=== PATIENT | female | born 1995 | race Caucasian/White ===

== ENCOUNTER 2018-04-24 13:36 | Emergency (ER) | payer OTHER, SELFPAY ==
[2018-04-24 13:51] VITALS: BP 120/60; PULSE 75; TEMP 37.1; O2SAT 99
--- NOTE | 2018-04-24 22:35 | ED_ITS ---
HPI - Extremity Problem <TEMO Mueller - Last Filed: 04/24/18 22:35> General Chief complaint: Extremity Problem,Nontraumatic Stated complaint: RT HEEL BROKEN, NUMB AND SMITA Time Seen by Provider: 04/24/18 14:33 Source: patient Mode of arrival: ambulatory Limitations: no limitations History of Present Illness HPI Narrative: Patient is a 23-year-old female with history of calcaneus fracture being seen by a [facility]. She presents to emergency department with cast on right lower leg and place. She is complaining of cold numb and tingly toes. She states this started earlier today. She has not followed up with her orthopedist. She states she can wiggle her toes. She states she is concerned because she is having to work as normal and is not allowed to elevate her leg. She also states she is out of her narcotic pain medication. She states that the cast feels loose. Related Data Home Medications Medication Instructions Recorded Confirmed acetaminophen [Mapap 325 mg PO PRN PRN 04/24/18 04/24/18 (acetaminophen)] desogestrel-ethinyl estradiol 1 tab PO DAILY 04/24/18 04/24/18 [Emoquette] ibuprofen 600 mg PO QID 04/24/18 04/24/18 Allergies Allergy/AdvReac Type Severity Reaction Status Date / Time No Known Drug Allergies Allergy Verified 04/24/18 14:00 Review of Systems <TEMO Mueller - Last Filed: 04/24/18 22:35> Review of Systems GENERAL: Denies chills, fatigue, malaise, fever, sweats. HEENT: Denies sinus pain, ear pain, sore throat, difficulty swallowing, dizziness. RESPIRATORY: Denies dyspnea, cough, wheezing, hemoptysis, sputum. CARDIOVASCULAR: Denies chest pain, palpitations, orthopnea, edema, GASTROINTESTINAL: Denies nausea, vomiting, abdominal pain, diarrhea, constipation, melena. : Denies dysuria, frequency, incontinence, hematuria, urinary retention. MUSCULOSKELETAL: See HPI SKIN: See HPI NEUROLOGIC: Denies weakness, headache, numbness, change in speech, confusion, seizures, incoordination. PSYCHIATRIC: No concerning psychosocial issues. 12 point review of systems is negative except for those stated above Exam <TEMO Mueller - Last Filed: 04/24/18 22:35> Narrative Exam Narrative: GENERAL: This is a well-nourished, well-developed patient, in mild distress. HEAD: Atraumatic. Normocephalic. No temporal or scalp tenderness. EYES: Pupils equal round and reactive. Extraocular motions intact. No scleral icterus. No injection or drainage. ENT: Nose without bleeding, purulent drainage or septal hematoma. Throat without erythema, tonsillar hypertrophy or exudate. Uvula midline. Airway patent. NECK: Trachea midline. No JVD or lymphadenopathy. Supple, nontender, no meningeal signs. CARDIOVASCULAR: Regular rate and rhythm. RESPIRATORY: No increased respiratory effort. No accessory muscle use. No cough on exam. EXTREMITIES: Cast in place right lower leg. Positive pulses right foot. Patient is able to wiggle her right toes. No obvious swelling. Can insert finger in to cast at lower foot around entire foot. BACK: Nontender without deformity or crepitance. No flank tenderness. NEURO: AOx3. SKIN: Bilateral toes equivocal collar. Capillary refill less than 2 sec right toes. Initial Vital Signs Initial Vital Signs: Vital Signs Temperature 98.8 F 04/24/18 13:51 Pulse Rate 75 04/24/18 13:51 Blood Pressure 120/60 04/24/18 13:51 Pulse Oximetry 99 04/24/18 13:51 <Jena Sheth DO - Last Filed: 04/25/18 08:13> Initial Vital Signs Initial Vital Signs: Vital Signs Temperature 98.8 F 04/24/18 13:51 Pulse Rate 75 04/24/18 13:51 Blood Pressure 120/60 04/24/18 13:51 Pulse Oximetry 99 04/24/18 13:51 MDM - Extremity (Nontraumatic) <JACIEL Mueller-BC - Last Filed: 04/24/18 22:35> [facility] Narrative Medical decision making narrative: Patient presents with chief complaint of numbness and tingling in her right foot. She is in a cast for what she states is a right calcaneus fracture. She states that the tingling sensation improved with foot elevation. She has positive PMS in her right toes and no evidence of compartment syndrome. I discussed at length with her continued rest ice compression elevation as well as follow up with Orthopedics. I discussed monitoring for concerns of circulation including change in color of toe and inability to move toes. Patient no questions or concerns upon discharge. Discharge Plan Departure Patient Disposition: Home Clinical Impression: Acute foot pain Discharge Date/Time: 04/24/18 16:06 Interventions: ED Discharge Assessment Last Done: 04/24/18 16:05 Instructions: How To Perform RICE (Rest, Ice, Compress, Elevate), DI for Foot Pain Activity Restrictions/Additional Instructions: You have good circulation in your foot today. Please monitor for numbness, inability to wiggle toes or any acute concerns. Please follow-up with Orthopedics. Prescriptions: No Action acetaminophen [Mapap (acetaminophen)] 325 mg tablet 325 mg PO PRN PRN (Reason: pain) RF: 0 desogestrel-ethinyl estradiol [Emoquette] 0.15-0.03 mg tablet 1 tab PO DAILY RF: 0 ibuprofen 600 mg tablet 600 mg PO QID RF: 0 Stand Alone Forms: Work/School Restrictions <Jena Sheth DO - Last Filed: 04/25/18 08:13> Cosign ED Attending Ruthannature Attestation: I was immediately available in the department for consultation. Documentation has been reviewed. I agree with assessment and plan.
== END 2018-04-24 16:06 | disposition home or self-care (01) ==
PROVIDERS: Emergency Provider Nurse Practitioner Family
DX: M79.671 Pain in right foot (principal)
CPT/HCPCS: 99282

== ENCOUNTER 2018-08-14 11:08 | Emergency (ER) | payer OTHER, SELFPAY ==
[2018-08-14 11:11] VITALS: BP 112/72; PULSE 76; RESP 16; TEMP 36.9; O2SAT 99; BMI 23.5
[2018-08-14 11:55] LABS: Bacteria Urine Many (>30); Culture Indicated Urine Specimen Cultured; RBC Urine 5-10/HPF (0-5/HPF); Squamous Epithelial Cell Urine 1-5 /HPF; WBC Urine 30-100/HPF (0-5/HPF)
--- NOTE | 2018-08-14 13:19 | ED_ITS ---
HPI - Female Genitourinary <LUNA Barrera - Last Filed: 08/14/18 22:05> General Chief complaint: Urogenital-Female Stated complaint: 'Kidney infection' Time Seen by Provider: 08/14/18 12:04 Source: patient Mode of arrival: ambulatory Limitations: no limitations History of Present Illness HPI Narrative: healthy 23-year-old female that is a nonsmoker for complaint of pain into her right flank area over the past week. She also reports having pain into her suprapubic region. She thinks that her urine smells foul as well. She denies any nausea vomiting. She does not know of any fevers however she does states she has had some chills recently. She is tolerating p.o. intake. She also reports having increased urinary frequency. She states she believes she has a kidney infection no other concerns or complaints this timeframe for Related Data Home Medications Medication Instructions Recorded Confirmed acetaminophen [Mapap 325 mg PO PRN PRN 04/24/18 08/14/18 (acetaminophen)] desogestrel-ethinyl estradiol 1 tab PO DAILY 04/24/18 08/14/18 [Emoquette] ibuprofen 600 mg PO QID 04/24/18 04/24/18 Previous Rx's Medication Instructions Recorded ciprofloxacin HCl 500 mg PO BID #14 tab 08/14/18 Allergies Allergy/AdvReac Type Severity Reaction Status Date / Time No Known Drug Allergies Allergy Verified 08/14/18 11:11 Review of Systems <LUNA Barrera - Last Filed: 08/14/18 22:05> Constitutional Denies chills, Denies fever(s), Denies lethargy and Denies weakness Eyes Denies change in vision, Denies eye discharge, Denies irritation and Denies loss of vision ENT Ears, Nose, Mouth, and Throat: Denies change in voice, Denies neck pain and Denies sore throat Cardiovascular Denies chest pain, Denies irregular heart rhythm, Denies lightheadedness, Denies palpitations, Denies dyspnea, Denies dyspnea on exertion and Denies orthopnea Respiratory Denies cough, Denies dyspnea, Denies dyspnea on exertion and Denies wheezing Gastrointestinal Gastrointestinal: Denies abdominal pain, Denies change in bowel habits, Denies diarrhea, Denies nausea and Denies vomiting Genitourinary Reports flank pain Comments: suprapubic pain, foul-smelling urine Musculoskeletal Denies neck pain Integumentary/Breasts Denies pruritus, Denies erythema, Denies rash and Denies wounds Neurologic Denies confusion, Denies loss of vision and Denies weakness Psychiatric Denies anxiety, Denies confusion, Denies depression, Denies homicidal ideation and Denies suicidal ideation Endocrine Denies palpitations Hematologic/Lymphatic Denies easy bruising Allergic/Immunologic Denies wheezing PFSH <LUNA Barrera - Last Filed: 08/14/18 22:05> Social History Smoking Status: Never smoker Social History Smoking Status: Never smoker Exam <LUNA Barrera - Last Filed: 08/14/18 22:05> Initial Vital Signs Initial Vital Signs: Vital Signs Temperature 98.5 F 08/14/18 11:11 Pulse Rate 76 08/14/18 11:11 Respiratory Rate 16 08/14/18 11:11 Blood Pressure 112/72 08/14/18 11:11 Pulse Oximetry 99 08/14/18 11:11 Const General: cooperative and well developed Nutritional Appearance: well nourished Orientation: alert, awake, oriented x3 and not confused HENMA Mouth: oral mucosae normal and moist mucous membranes Eyes Conjunctivae: conjunctivae normal Sclera: sclerae normal Pupils: PERRL EOM: EOM intact bilaterally Resp Effort & Inspection: normal respiratory effort, able to speak in complete sentences, no respiratory distress and no use of accessory muscles Auscultation: clear to auscultation bilaterally, no rales, no rhonchi and no wheezes Cardio Rate: regular rate Rhythm: regular rhythm Heart Sounds: no click, no gallops, no murmurs and no rubs Pulses: normal peripheral pulses GI Other: tenderness to suprapubic/bladder area General: CVA tenderness ( right CVA tender) Skin General: no rashes or lesions noted, No jaundice and No petechiae Neuro General: alert, oriented x3, gait normal and no focal motor deficits Speech: speech normal <Shady Kumar DO - Last Filed: 08/15/18 07:14> Initial Vital Signs Initial Vital Signs: Vital Signs Temperature 98.5 F 08/14/18 11:11 Pulse Rate 76 08/14/18 11:11 Respiratory Rate 16 08/14/18 11:11 Blood Pressure 112/72 08/14/18 11:11 Pulse Oximetry 99 08/14/18 11:11 Course <LUNA Barrera - Last Filed: 08/14/18 22:05> Orders Ordered: Discontinued Medications Ceftriaxone Sodium (Rocephin) 1,000 mg IM NOW ONE Stop: 08/14/18 13:46 Last Admin: 08/14/18 13:51 Dose: 1,000 mg Ibuprofen (Advil) 400 mg PO NOW ONE Stop: 08/14/18 13:56 Last Admin: 08/14/18 14:00 Dose: 400 mg Ondansetron HCl (Zofran Odt) 4 mg PO NOW ONE Stop: 08/14/18 13:58 Last Admin: 08/14/18 14:00 Dose: 4 mg Vital Signs - 8 hr 08/14/18 14:02 08/14/18 14:28 Pulse Rate 64 73 Respiratory Rate 12 14 Blood Pressure [Left Arm] 94/44 L 115/73 Pulse Oximetry 100 100 <Shady Kumar DO - Last Filed: 08/15/18 07:14> Orders Ordered: Discontinued Medications Ceftriaxone Sodium (Rocephin) 1,000 mg IM NOW ONE Stop: 08/14/18 13:46 Last Admin: 08/14/18 13:51 Dose: 1,000 mg Ibuprofen (Advil) 400 mg PO NOW ONE Stop: 08/14/18 13:56 Last Admin: 08/14/18 14:00 Dose: 400 mg Ondansetron HCl (Zofran Odt) 4 mg PO NOW ONE Stop: 08/14/18 13:58 Last Admin: 08/14/18 14:00 Dose: 4 mg Vital Signs - 8 hr 08/14/18 14:02 08/14/18 14:28 Pulse Rate 64 73 Respiratory Rate 12 14 Blood Pressure [Left Arm] 94/44 L 115/73 Pulse Oximetry 100 100 MDM - Female Genitourinary <LUNA Barrera - Last Filed: 08/14/18 22:05> Lab Data Lab Results 08/14/18 Range/Units 11:15 Urine RBC 5-10/hpf H (0-5/HPF) Urine WBC 30-100/hpf H (0-5/HPF) Ur Squamous Epith Cells 1-5 /hpf Urine Bacteria Many (>30) H (None) Ur Culture Indicated? Specimen cultured Point of Care Testing Test Results Negative Urine Dip Bedside Urine Glucose Negative Bedside Urine Bilirubin - Negative Bedside Urine Ketone - Negative Urine Specific [place] 1.020 Bedside Urine Occult Blood + Bedside Urine pH 5.5 Bedside Urine Protein +/- 15 Bedside Urine Urobilinogen - Negative Bedside Urine Nitrite + Positive Bedside Urine Leukocytes + 70 Esterase MDM Narrative Medical decision making narrative: urinalysis was positive for urinary tract infection will treat for uncomplicated pyelonephritis with 1 g IM of Rocephin here in the emergency room followed by ciprofloxacin. She is encouraged to follow up with primary care provider in the next day or 2. Plenty of fluids. [id number] Tylenol as needed for fever or discomfort. For any worsening symptoms return to the em <Shady Kumar DO - Last Filed: 08/15/18 07:14> Lab Data Lab Results 08/14/18 Range/Units 11:15 Urine RBC 5-10/hpf H (0-5/HPF) Urine WBC 30-100/hpf H (0-5/HPF) Ur Squamous Epith Cells 1-5 /hpf Urine Bacteria Many (>30) H (None) Ur Culture Indicated? Specimen cultured Point of Care Testing Test Results Negative Urine Dip Bedside Urine Glucose Negative Bedside Urine Bilirubin - Negative Bedside Urine Ketone - Negative Urine Specific [place] 1.020 Bedside Urine Occult Blood + Bedside Urine pH 5.5 Bedside Urine Protein +/- 15 Bedside Urine Urobilinogen - Negative Bedside Urine Nitrite + Positive Bedside Urine Leukocytes + 70 Esterase Discharge Plan Departure Patient Disposition: Home Clinical Impression: Pyelonephritis Discharge Date/Time: 08/14/18 14:48 Interventions: ED Discharge Assessment Last Done: 08/14/18 14:47 Instructions: DI for Kidney Infection Activity Restrictions/Additional Instructions: laboratory results indicates the of urinary tract infection and symptoms presents as kidney infection. you are placed on antibiotics use as directed. Plenty of fluids. Use [id number] Tylenol as needed for fever or chills. Follow up with her doctor in the next day or 2 for re-evaluation. For any worsening symptoms return to the emergency room. Prescriptions: New ciprofloxacin HCl 500 mg tablet 500 mg PO BID Qty: 14 RF: 0 No Action acetaminophen [Mapap (acetaminophen)] 325 mg tablet 325 mg PO PRN PRN (Reason: pain) RF: 0 desogestrel-ethinyl estradiol [Emoquette] 0.15-0.03 mg tablet 1 tab PO DAILY RF: 0 ibuprofen 600 mg tablet 600 mg PO QID RF: 0 Referrals: [facility] [Provider Group] <Shady Kumar DO - Last Filed: 08/15/18 07:14> Cosign ED Attending Radha Attestation: I was available for consultation during t his patient's emergency department encounter
[2018-08-14 13:27] VITALS: BP 117/75; PULSE 67; RESP 17; O2SAT 100
[2018-08-14] MEDS: cefTRIAXone 1,000 MG VIAL 1000 MG IM (13:51)
[2018-08-14] MEDS: ONDANSETRON 4 MG ODT PO (14:00)
[2018-08-14] MEDS: IBUPROFEN 400 MG TABLET PO (14:00)
--- NOTE | 2018-08-14 14:01 | PC.NURSE ---
After being given IM ceftriaxone, pt told me that she usually 'faints' with injections or any blood draw. c/o not feeling well including nausea. Layed flat. HR initially 45, improved to 73. Given zofran for nausea.
[2018-08-14 14:02] VITALS: BP 94/44; PULSE 64; RESP 12; O2SAT 100
[2018-08-14 14:28] VITALS: BP 115/73; PULSE 73; RESP 14; O2SAT 100
== END 2018-08-14 14:48 | disposition home or self-care (01) ==
PROVIDERS: Emergency Medicine; Emergency Provider Nurse Practitioner Family
DX: N12 Tubulo-interstitial nephritis, not specified as acute or chronic (principal)
CPT/HCPCS: 81003; 81015; 81025; 87077; 87086; 87186; 99283; J0696

== ENCOUNTER 2019-08-06 10:24 | Emergency (ER) | payer OTHER, SELFPAY ==
[2019-08-06] VITALS (8 sets, daily range): BP systolic 96–112; BP diastolic 51–65; PULSE 64–78; RESP 13–18; TEMP 36.6; O2SAT 97–100; BMI 25.0
[2019-08-06 10:54] LABS: Add Manual Diff / Slide Review NO; Basophils Absolute Auto 100 /uL (0-100); Basophils Percent Auto 1.1 % (0-2); Eosinophils Absolute Auto 100 /uL (0-450); Eosinophils Percent Auto 1.9 % (2-4); Hematocrit 36.8 % (36-46); Hemoglobin 12.5 g/dL (12.0-16.0); Lymphocytes Absolute Auto 2100 /uL (1100-4500); Lymphocytes Percent Auto 33.6 % (25-40); Mean Corpuscular HGB Conc 34.1 % (30-36); Mean Corpuscular Hemoglobin 32.2 PG (26-34); Mean Corpuscular Volume 94.4 fL (80-100); Monocytes Absolute Auto 400 /uL (0-900); Monocytes Percent Auto 6.1 % (3-14); Neutrophils Absolute Auto 3600 /uL (1500-7000); Neutrophils Percent Auto 57.3 % (50-75); Platelet Count 343 X10^3/uL (150-400); Red Cell Distribution Width 11.8 % (11.6-14.8); White Blood Cell Count 6.2 X10^3/uL (4.5-11.0)
[2019-08-06 11:01] LABS: PTT Partial Thromboplastin Tim 33 SECONDS (26.4-36.2)
[2019-08-06 11:05] LABS: Alanine Aminotransferase 16 IU/L (<35); Albumin 4.8 g/dL (3.5-5.0); Albumin Globulin Ratio 1.7 (1.0-2.8); Alkaline Phosphatase 35 U/L (38-126); Aspartate Aminotransferase 20 IU/L (14-36); BUN Creatinine Ratio 13.8 (6-22); Bilirubin Total 0.3 mg/dL (0.2-1.3); Blood Urea Nitrogen 11 mg/dL (7-17); Calcium 9.6 mg/dL (8.4-10.2); Carbon Dioxide 23 mmol/L (22-32); Chloride 108 mmol/L (98-107); Estimated Glomerular Filt Rate > 60.0 mL/min (>60); Globulin 2.9 g/dL (1.7-4.1); Glucose 96 mg/dL (70-100); HEMOLYSIS < 15 (0-50); Lipase 56 U/L (23-300); Potassium 4.3 mmol/L (3.4-5.1); Sodium 140 mmol/L (137-145); Total Protein 7.7 g/dL (6.3-8.2)
[2019-08-06 11:14] LABS: RBC Urine 0-1/HPF (0-5/HPF); Squamous Epithelial Cell Urine 10-30 /HPF (0-5/HPF); WBC Urine 1-5/HPF (0-5/HPF)
[2019-08-06 11:15] LABS: Bacteria Urine Many (>30); Culture Indicated Urine Cult Not Indicated; Mucus Urine 2+ (Negative)
--- NOTE | 2019-08-06 11:39 | DI.US.S_ITS ---
PROCEDURE: US PELVIC COMPLETE INDICATIONS: LEFT PELVIC PAIN TECHNIQUE: Real-time scanning was performed of the pelvic organs, with image documentation. Additional endovaginal scanning was necessary due to incomplete visualization of the adnexal and endometrial structures by transabdominal scanning. COMPARISON: None. FINDINGS: Transabdominal scanning: Limited scanning through the kidneys shows no hydronephrosis. No pathologic free abdominal or pelvic fluid. Endovaginal scanning: Uterus: Uterus is normal in size at 5.9 x 2.4 x 3.6 cm. The endometrium measures 2 mm in combined thickness. No focal myometrial lesions are identified. No significant fluid is seen within the endometrium. The cervix is unremarkable. Ovaries: The right ovary measures 3.3 x 1.9 x 1.8 cm. The left ovary measures 3.4 x 1.5 x 1.5 cm. Both ovaries are normal without cystic or solid abnormality. Small follicles are present bilaterally. Blood flow is demonstrated to both ovaries, which demonstrated normal arterial Doppler waveform. IMPRESSION: The uterus and ovaries are within normal limits. No ovarian cysts. Dictated by: Huy Montaño M.D. on 08/06/2019 at 11:59 Approved by: Huy Montaño M.D. on 08/06/2019 at 12:02
[2019-08-06] MEDS: ONDANSETRON 4 MG/2 ML INJ IV (11:55)
[2019-08-06] MEDS: KETOROLAC 60 MG/2 ML VIAL 30 MG IV (11:56)
--- NOTE | 2019-08-06 12:08 | ED_ITS ---
HPI - Abdominal Pain <JACIEL Mueller-BC - Last Filed: 08/06/19 17:28> General Chief Complaint: Abdominal Pain Stated Complaint: sharp lower left quadrant pain Time Seen by Provider: 08/06/19 11:05 Source: patient Mode of arrival: Ambulatory Limitations: no limitations History of Present Illness HPI narrative: The patient is a 24-year-old female nonsmoker who presents with her for chief complaint of left lower quadrant pain, sudden onset this morning. She states she has had this pain before but never as bad as it is today. She states it happens approximately every month, likely midcycle. She states that last month that was on her right side. She denies any fevers, comp lains of nausea no vomiting. Denies any diarrhea. She does not know when her last bowel movement was. She states she does have a history of constipation. Patient presents with her . She denies any dysuria urgency or frequency. She denies any vaginal discharge or sexually transmitted infection risk. Related Data Home Medications Medication Instructions Recorded Confirmed desogestrel-ethinyl estradiol 1 tab PO DAILY 04/24/18 08/06/19 [[place]] Vitamin D3 1 cap PO DAILY 08/06/19 08/06/19 bupropion HCl 300 mg PO DAILY 08/06/19 08/06/19 calcium carbonate 1 tab PO DAILY 08/06/19 08/06/19 fluoxetine 40 mg PO DAILY 08/06/19 08/06/19 gabapentin 100 mg PO TID 08/06/19 08/06/19 hydroxyzine pamoate 25 mg PO Q4H PRN 08/06/19 08/06/19 iron 1 tab PO DAILY 08/06/19 08/06/19 multivitamin 1 tab PO DAILY 08/06/19 08/06/19 naproxen 1 tab PO PRN PRN 08/06/19 08/06/19 trazodone 150 mg PO BEDTIME 08/06/19 08/06/19 Allergies Allergy/AdvReac Type Severity Reaction Status Date / Time No Known Drug Allergies Allergy Verified 08/06/19 10:32 Review of Systems <JORGE MuellerBC - Last Filed: 08/06/19 17:28> Review of Systems Narrative: GENERAL: Denies chills, fatigue, malaise, fever, sweats. HEENT: Denies sinus pain, ear pain, sore throat, difficulty swallowing, dizziness. RESPIRATORY: Denies dyspnea, cough, wheezing, hemoptysis, sputum. CARDIOVASCULAR: Denies chest pain, palpitations, orthopnea, edema, GASTROINTESTINAL: See HPI : Denies dysuria, frequency, incontinence, hematuria, urinary retention. MUSCULOSKELETAL: denies weakness, joint pain, or bony pain SKIN: Denies rash, skin lesions, or other NEUROLOGIC: Denies weakness, headache, numbness, change in speech, confusion, seizures, incoordination. PSYCHIATRIC: No concerning psychosocial issues. 12 point review of systems is negative except for those stated above Patient History <TEMO Mueller - Last Filed: 08/06/19 17:28> Social History Smoking Status: Never smoker Smoking Status: Never smoker alcohol intake frequency: holidays/special occasions only Substance Use Type: does not use Exam <TEMO Mueller - Last Filed: 08/06/19 17:28> Narrative Exam Narrative: GENERAL: This is a well-nourished, well-developed patient, no apparent distress HEAD: Atraumatic. Normocephalic. No temporal or scalp tenderness. EYES: Pupils equal round and reactive. Extraocular motions intact. No scleral icterus. No injection or drainage. ENT: Nose without bleeding, purulent drainage or septal hematoma. Throat without erythema, tonsillar hypertrophy or exudate. Uvula midline. Airway patent. NECK: Trachea midline. No JVD or lymphadenopathy. Supple, nontender, no meningeal signs. CARDIOVASCULAR: Regular rate and rhythm without murmurs, gallops, or rubs. RESPIRATORY: Clear to auscultation. Breath sounds equal bilaterally. No wheezes, rales, or rhonchi. No cough. No increased respiratory effort. No accessory muscle use. GASTROINTESTINAL: Abdomen soft, diffusely tender, nondistended. No hepato- splenomegaly, or palpable masses. Pain to left lower quadrant palpation EXTREMITIES: No clubbing, cyanosis, or edema. No joint tenderness, effusion, or edema noted. BACK: Nontender without deformity or crepitance. No flank tenderness. NEURO: AOx3. SKIN: No rash or erythema visible skin Patient declines pelvic exam Initial Vital Signs Initial Vital Signs: Vital Signs Pulse Rate 76 08/06/19 10:30 Respiratory Rate 18 08/06/19 10:30 Blood Pressure 112/61 08/06/19 10:30 Pulse Oximetry 97 08/06/19 10:30 <Carmita Feldman DO - Last Filed: 08/07/19 19:16> Initial Vital Signs Initial Vital Signs: Vital Signs Pulse Rate 76 08/06/19 10:30 Respiratory Rate 18 08/06/19 10:30 Blood Pressure 112/61 08/06/19 10:30 Pulse Oximetry 97 08/06/19 10:30 Course <LARA MuelelrP-BC - Last Filed: 08/06/19 17:28> Orders Ordered: Discontinued Medications Ketorolac Tromethamine (Toradol) 30 mg IV NOW ONE Stop: 08/06/19 11:40 Last Admin: 08/06/19 11:56 Dose: 30 mg Documented by: MEISENB Ondansetron HCl (Zofran) 4 mg IV NOW ONE Stop: 08/06/19 11:40 Last Admin: 08/06/19 11:55 Dose: 4 mg Documented by: MEISENB Simethicone (Mylicon) 80 mg PO NOW ONE Stop: 08/06/19 14:24 Last Admin: 08/06/19 14:39 Dose: 80 mg Documented by: MEISENB Vital Signs Vital signs: Vital Signs - 8 hr 08/06/19 10:30 08/06/19 10:32 08/06/19 11:47 Temperature 97.9 F Pulse Rate 76 74 68 Respiratory Rate 18 13 18 Blood Pressure 112/65 Blood Pressure [Left Arm] 112/61 99/51 L Pulse Oximetry 97 97 100 08/06/19 14:03 08/06/19 14:30 08/06/19 15:00 Temperature Pulse Rate 68 66 64 Respiratory Rate 18 18 16 Blood Pressure Blood Pressure [Left Arm] 96/54 L 103/59 L 96/54 L Pulse Oximetry 98 99 98 08/06/19 15:30 08/06/19 16:12 Temperature Pulse Rate 68 78 Respiratory Rate 18 Blood Pressure 104/58 L Blood Pressure [Left Arm] 104/58 L Pulse Oximetry 100 98 <Carmita Feldman DO - Last Filed: 08/07/19 19:16> Orders Ordered: Discontinued Medications Ketorolac Tromethamine (Toradol) 30 mg IV NOW ONE Stop: 08/06/19 11:40 Last Admin: 08/06/19 11:56 Dose: 30 mg Documented by: PATRICIA Ondansetron HCl (Zofran) 4 mg IV NOW ONE Stop: 08/06/19 11:40 Last Admin: 08/06/19 11:55 Dose: 4 mg Documented by: PATRICIA Simethicone (Mylicon) 80 mg PO NOW ONE Stop: 08/06/19 14:24 Last Admin: 08/06/19 14:39 Dose: 80 mg Documented by: PATRICIA Vital Signs Vital signs: Vital Signs - 8 hr 08/06/19 10:30 08/06/19 10:32 08/06/19 11:47 Temperature 97.9 F Pulse Rate 76 74 68 Respiratory Rate 18 13 18 Blood Pressure 112/65 Blood Pressure [Left Arm] 112/61 99/51 L Pulse Oximetry 97 97 100 08/06/19 14:03 08/06/19 14:30 08/06/19 15:00 Temperature Pulse Rate 68 66 64 Respiratory Rate 18 18 16 Blood Pressure Blood Pressure [Left Arm] 96/54 L 103/59 L 96/54 L Pulse Oximetry 98 99 98 08/06/19 15:30 08/06/19 16:12 Temperature Pulse Rate 68 78 Respiratory Rate 18 Blood Pressure 104/58 L Blood Pressure [Left Arm] 104/58 L Pulse Oximetry 100 98 MDM - Abdominal Pain <LARA MuellerP-BC - Last Filed: 08/06/19 17:28> Lab Data Result diagrams: 08/06/19 10:43 08/06/19 10:43 Labs: Lab Results 08/06/19 08/06/19 08/06/19 Range/Units 10:43 10:43 10:43 WBC 6.2 (4.5-11.0) X10^3/uL RBC 3.90 L (4.0-5.2) X10^6/uL Hgb 12.5 (12.0-16.0) g/dL Hct 36.8 (36-46) % MCV 94.4 (80-100) fL MCH 32.2 (26-34) PG MCHC 34.1 (30-36) % RDW 11.8 (11.6-14.8) % Plt Count 343 (150-400) X10^3/uL Neut % (Auto) 57.3 (50-75) % Lymph % (Auto) 33.6 (25-40) % [place] % (Auto) 6.1 (3-14) % Eos % (Auto) 1.9 L (2-4) % Baso % (Auto) 1.1 (0-2) % Neut # (Auto) 3600 (5161-1982) /uL Lymph # (Auto) 2100 (6699-8143) /uL [place] # (Auto) 400 (0-900) /uL Eos # (Auto) 100 (0-450) /uL Baso # (Auto) 100 (0-100) /uL PT 12.0 (10.1-12.7) SECONDS INR 1.0 (0.9-1.3) APTT 33 (26.4-36.2) SECONDS Sodium 140 (137-145) mmol/L Potassium 4.3 (3.4-5.1) mmol/L Chloride 108 H (98-107) mmol/L Carbon Dioxide 23 (22-32) mmol/L BUN 11 (7-17) mg/dL Creatinine 0.80 (0.52-1.04) mg/dL Estimated GFR > 60.0 (>60) mL/min BUN/Creatinine Ratio 13.8 (6-22) Glucose 96 (70-100) mg/dL Calcium 9.6 (8.4-10.2) mg/dL Total Bilirubin 0.3 (0.2-1.3) mg/dL AST 20 (14-36) IU/L ALT 16 (<35) IU/L Alkaline Phosphatase 35 L (38-126) U/L Total Protein 7.7 (6.3-8.2) g/dL Albumin 4.8 (3.5-5.0) g/dL Globulin 2.9 (1.7-4.1) g/dL Albumin/Globulin Ratio 1.7 (1.0-2.8) Lipase 56 (23-300) U/L Urine RBC (0-5/HPF) Urine WBC (0-5/HPF) Ur Squamous Epith Cells (0-5/HPF) Urine Bacteria (None) Urine Mucus (Negative) Ur Culture Indicated? 08/06/19 Range/Units 10:45 WBC (4.5-11.0) X10^3/uL RBC (4.0-5.2) X10^6/uL Hgb (12.0-16.0) g/dL Hct (36-46) % MCV (80-100) fL MCH (26-34) PG MCHC (30-36) % RDW (11.6-14.8) % Plt Count (150-400) X10^3/uL Neut % (Auto) (50-75) % Lymph % (Auto) (25-40) % [place] % (Auto) (3-14) % Eos % (Auto) (2-4) % Baso % (Auto) (0-2) % Neut # (Auto) (7054-9858) /uL Lymph # (Auto) (5953-9443) /uL [place] # (Auto) (0-900) /uL Eos # (Auto) (0-450) /uL Baso # (Auto) (0-100) /uL PT (10.1-12.7) SECONDS INR (0.9-1.3) APTT (26.4-36.2) SECONDS Sodium (137-145) mmol/L Potassium (3.4-5.1) mmol/L Chloride (98-107) mmol/L Carbon Dioxide (22-32) mmol/L BUN (7-17) mg/dL Creatinine (0.52-1.04) mg/dL Estimated GFR (>60) mL/min BUN/Creatinine Ratio (6-22) Glucose (70-100) mg/dL Calcium (8.4-10.2) mg/dL Total Bilirubin (0.2-1.3) mg/dL AST (14-36) IU/L ALT (<35) IU/L Alkaline Phosphatase (38-126) U/L Total Protein (6.3-8.2) g/dL Albumin (3.5-5.0) g/dL Globulin (1.7-4.1) g/dL Albumin/Globulin Ratio (1.0-2.8) Lipase (23-300) U/L Urine RBC 0-1/hpf (0-5/HPF) Urine WBC 1-5/hpf (0-5/HPF) Ur Squamous Epith Cells 10-30 /hpf H D (0-5/HPF) Urine Bacteria Many (>30) H (None) Urine Mucus 2+ H (Negative) Ur Culture Indicated? Cult not indicated Point of care testing: Point of Care Testing Test Results Negative Urine Dip Bedside Urine Glucose Negative Bedside Urine Bilirubin + 1 Bedside Urine Ketone - Negative Urine Specific [place] 1.030 Bedside Urine Occult Blood - Negative Bedside Urine pH 6.0 Bedside Urine Protein +/- 15 Bedside Urine Urobilinogen - Negative Bedside Urine Nitrite - Negative Bedside Urine Leukocytes +/- 15 Esterase Imaging Data US - WOOLEN TESTER: Radiologist's Impression: [address] [place] [id number] Ultrasound Report Signed Patient: Tran Stone PMR#: [id number] : 1995Acct:[id number] Age/Sex: te of Service: 08/06/19 Loc: ED Accession Number: [id number] Procedure: US pelvic complete Ordering Provider: Carmita Lei ORTHO RN-BC PROCEDURE: US PELVIC COMPLETE INDICATIONS: LEFT PELVIC PAIN TECHNIQUE: Real-time scanning was performed of the pelvic organs, with image documentation. Additional endovaginal scanning was necessary due to incomplete visualization of the adnexal and endometrial structures by transabdominal scanning. COMPARISON: None. FINDINGS: Transabdominal scanning: Limited scanning through the kidneys shows no hydronephrosis. No pathologic free abdominal or pelvic fluid. Endovaginal scanning: Uterus: Uterus is normal in size at 5.9 x 2.4 x 3.6 cm. The endometrium measures 2 mm in combined thickness. No focal myometrial lesions are identified. No significant fluid is seen within the endometrium. The cervix is unremarkable. Ovaries: The right ovary measures 3.3 x 1.9 x 1.8 cm. The left ovary measures 3.4 x 1.5 x 1.5 cm. Both ovaries are normal without cystic or solid abnormality. Small follicles are present bilaterally. Blood flow is demonstrated to both ovaries, which demonstrated normal arterial Doppler waveform. IMPRESSION: The uterus and ovaries are within normal limits. No ovarian cysts. Dictated by: Huy Montaño M.D. on 08/06/2019 at 11:59 Approved by: Huy Montaño M.D. on 08/06/2019 at 12:02 Abdominal x-ray: Radiologist's Impression: [address] [place] [id number] XRay Report Signed Patient: Tran Stone PMR#: [id number] : 1995Acct:[id number] Age/Sex: 24 FDate of Service: 08/06/19 Loc: ED Accession Number: [id number] Procedure: XR abdomen 1V Ordering Provider: Carmita Lei-DOUGIE PROCEDURE: XR ABDOMEN 1V INDICATIONS: abd pain, unknown last bm TECHNIQUE: One view of the abdomen acquired. COMPARISON: None. FINDINGS: Surgical changes and devices: None. Bowel: Bowel gas pattern is nonspecific. There is a small amount of colonic stool primarily within the ascending colon. There is mild gaseous distention within the descending and rectosigmoid colon. No distended small bowel loops to suggest obstruction. Soft tissues: No suspicious abdominal calcifications. Bones: No suspicious bony lesions. IMPRESSION: 1. Nonspecific bowel gas pattern with mild gaseous distention of the distal colon which may reflect a gastroenteritis or ileus. No definite bowel obstruction. Dictated by: Nadir Agarwal M.D. on 08/06/2019 at 13:57 Approved by: Nadir Agarwal M.D. on 08/06/2019 at 13:59 [facility] Narrative Medical decision making narrative: The patient is a 24-year-old female who presents with a chief complaint of abdominal pain that comes and goes. Curren tly on left lower quadrant. Lab work is grossly normal, no leukocytosis. She is afebrile in the emergency department, tolerating p.o. food and fluids. Ultrasound shows no acute findings. X-ray shows no acute findings. Offered to do pelvic exam, check for PID with patient declines in the emergency department. Low suspicion given the patient is afebrile no leukocytosis no complaint of vaginal discharge. Urine has no signs of infection. Discussed at length follow up with primary care provider, discussed at length coming back to the emergency department for any acute concerns. Patient has been hemodynamically stable throughout her stay in the emergency department. <Carmita Feldman DO - Last Filed: 08/07/19 19:16> Lab Data Labs: Lab Results 08/06/19 08/06/19 08/06/19 Range/Units 10:43 10:43 10:43 WBC 6.2 (4.5-11.0) X10^3/uL RBC 3.90 L (4.0-5.2) X10^6/uL Hgb 12.5 (12.0-16.0) g/dL Hct 36.8 (36-46) % MCV 94.4 (80-100) fL MCH 32.2 (26-34) PG MCHC 34.1 (30-36) % RDW 11.8 (11.6-14.8) % Plt Count 343 (150-400) X10^3/uL Neut % (Auto) 57.3 (50-75) % Lymph % (Auto) 33.6 (25-40) % [place] % (Auto) 6.1 (3-14) % Eos % (Auto) 1.9 L (2-4) % Baso % (Auto) 1.1 (0-2) % Neut # (Auto) 3600 (2936-0380) /uL Lymph # (Auto) 2100 (4170-5068) /uL [place] # (Auto) 400 (0-900) /uL Eos # (Auto) 100 (0-450) /uL Baso # (Auto) 100 (0-100) /uL PT 12.0 (10.1-12.7) SECONDS INR 1.0 (0.9-1.3) APTT 33 (26.4-36.2) SECONDS Sodium 140 (137-145) mmol/L Potassium 4.3 (3.4-5.1) mmol/L Chloride 108 H (98-107) mmol/L Carbon Dioxide 23 (22-32) mmol/L BUN 11 (7-17) mg/dL Creatinine 0.80 (0.52-1.04) mg/dL Estimated GFR > 60.0 (>60) mL/min BUN/Creatinine Ratio 13.8 (6-22) Glucose 96 (70-100) mg/dL Calcium 9.6 (8.4-10.2) mg/dL Total Bilirubin 0.3 (0.2-1.3) mg/dL AST 20 (14-36) IU/L ALT 16 (<35) IU/L Alkaline Phosphatase 35 L (38-126) U/L Total Protein 7.7 (6.3-8.2) g/dL Albumin 4.8 (3.5-5.0) g/dL Globulin 2.9 (1.7-4.1) g/dL Albumin/Globulin Ratio 1.7 (1.0-2.8) Lipase 56 (23-300) U/L Urine RBC (0-5/HPF) Urine WBC (0-5/HPF) Ur Squamous Epith Cells (0-5/HPF) Urine Bacteria (None) Urine Mucus (Negative) Ur Culture Indicated? 08/06/19 Range/Units 10:45 WBC (4.5-11.0) X10^3/uL RBC (4.0-5.2) X10^6/uL Hgb (12.0-16.0) g/dL Hct (36-46) % MCV (80-100) fL MCH (26-34) PG MCHC (30-36) % RDW (11.6-14.8) % Plt Count (150-400) X10^3/uL Neut % (Auto) (50-75) % Lymph % (Auto) (25-40) % [place] % (Auto) (3-14) % Eos % (Auto) (2-4) % Baso % (Auto) (0-2) % Neut # (Auto) (6084-6558) /uL Lymph # (Auto) (8244-6906) /uL [place] # (Auto) (0-900) /uL Eos # (Auto) (0-450) /uL Baso # (Auto) (0-100) /uL PT (10.1-12.7) SECONDS INR (0.9-1.3) APTT (26.4-36.2) SECONDS Sodium (137-145) mmol/L Potassium (3.4-5.1) mmol/L Chloride (98-107) mmol/L Carbon Dioxide (22-32) mmol/L BUN (7-17) mg/dL Creatinine (0.52-1.04) mg/dL Estimated GFR (>60) mL/min BUN/Creatinine Ratio (6-22) Glucose (70-100) mg/dL Calcium (8.4-10.2) mg/dL Total Bilirubin (0.2-1.3) mg/dL AST (14-36) IU/L ALT (<35) IU/L Alkaline Phosphatase (38-126) U/L Total Protein (6.3-8.2) g/dL Albumin (3.5-5.0) g/dL Globulin (1.7-4.1) g/dL Albumin/Globulin Ratio (1.0-2.8) Lipase (23-300) U/L Urine RBC 0-1/hpf (0-5/HPF) Urine WBC 1-5/hpf (0-5/HPF) Ur Squamous Epith Cells 10-30 /hpf H D (0-5/HPF) Urine Bacteria Many (>30) H (None) Urine Mucus 2+ H (Negative) Ur Culture Indicated? Cult not indicated Point of care testing: Point of Care Testing Test Results Negative Urine Dip Bedside Urine Glucose Negative Bedside Urine Bilirubin + 1 Bedside Urine Ketone - Negative Urine Specific [place] 1.030 Bedside Urine Occult Blood - Negative Bedside Urine pH 6.0 Bedside Urine Protein +/- 15 Bedside Urine Urobilinogen - Negative Bedside Urine Nitrite - Negative Bedside Urine Leukocytes +/- 15 Esterase Discharge Plan Departure Patient Disposition: Home Clinical Impression: Abdominal pain Qualifiers: Abdominal location: left lower quadrant Qualified Code(s): R10.32 - Left lower quadrant pain Constipation Qualifiers: Constipation type: other constipation type Qualified Code(s): K59.09 - Other constipation Discharge Date/Time: 08/06/19 16:13 Instructions: DI for Abdominal Pain-Adult, DI for Constipation Activity Restrictions/Additional Instructions: As discussed, your lab work came back with no acute findings Your urinalysis an x-ray also had no acute findings other than gas Please follow-up with primary care provider. Please come back to the emergency department for any acute concerns such as abdominal pain with fever, inability keep down fluids etcetera etcetera I suggest to light diet. Please be sure to that your moving your bowels regularly. Prescriptions: No Action desogestrel-ethinyl estradiol [[place]] 0.15-0.03 mg tablet 1 tab PO DAILY RF: 0 fluoxetine 40 mg capsule 40 mg PO DAILY RF: 0 trazodone 100 mg tablet 150 mg PO BEDTIME RF: 0 bupropion HCl 300 mg tablet extended release 24 hr 300 mg PO DAILY RF: 0 multivitamin Tablet 1 tab PO DAILY RF: 0 gabapentin 100 mg capsule 100 mg PO TID RF: 0 hydroxyzine pamoate 25 mg capsule 25 mg PO Q4H PRN (Reason: Anxiety) RF: 0 Vitamin D3 1 cap PO DAILY RF: 0 calcium carbonate 1 tab PO DAILY RF: 0 iron 1 tab PO DAILY RF: 0 naproxen 1 tab PO PRN PRN (Reason: pain) RF: 0 Referrals: [employer] [facility] [Provider Group]
--- NOTE | 2019-08-06 13:21 | DI.RAD.S_ITS ---
PROCEDURE: XR ABDOMEN 1V INDICATIONS: abd pain, unknown last bm TECHNIQUE: One view of the abdomen acquired. COMPARISON: None. FINDINGS: Surgical changes and devices: None. Bowel: Bowel gas pattern is nonspecific. There is a small amount of colonic stool primarily within the ascending colon. There is mild gaseous distention within the descending and rectosigmoid colon. No distended small bowel loops to suggest obstruction. Soft tissues: No suspicious abdominal calcifications. Bones: No suspicious bony lesions. IMPRESSION: 1. Nonspecific bowel gas pattern with mild gaseous distention of the distal colon which may reflect a gastroenteritis or ileus. No definite bowel obstruction. Dictated by: Nadir Agarwal M.D. on 08/06/2019 at 13:57 Approved by: Nadir Agarwal M.D. on 08/06/2019 at 13:59
[2019-08-06] MEDS: SIMETHICONE 80 MG TABLET PO (14:39)
== END 2019-08-06 16:13 | disposition home or self-care (01) ==
PROVIDERS: Emergency Medicine; Emergency Provider Nurse Practitioner Family
DX: K59.09 Other constipation (principal); R10.32 Left lower quadrant pain
CPT/HCPCS: 36415; 74018; 76856; 80053; 81003; 81015; 81025; 83690; 85025; 85610; 85730; 96374; 96375; 99284; 99285; J1885; J2405